=== PATIENT | female | born 1985 | race African-American/Black ===

== ENCOUNTER 2025-09-04 23:20 | Emergency (ER) | payer SELFPAY ==
[~2025-09-04] VITALS: Ht 172.7 cm; Wt 85.9 kg
[2025-09-04 23:22] VITALS: TEMP 98.2
[2025-09-04 23:48] VITALS: BP 112/75; PULSE 82; RESP 18; O2SAT 99
[2025-09-05 00:33] LABS: PLATELET COUNT (AUTO) 220 K/uL (150-450); RED BLOOD CELL COUNT(AUTO) 3.97 MIL/uL (4.00-5.20); RED CELL DISTRIBUTION WIDTH 13.9 % (11.5-14.5); WHITE BLOOD COUNT (AUTO) 5.7 K/uL (4.5-11.0)
[2025-09-05] MEDS: KETOROLAC TROMETHAMINE 30 MG/ML VIAL IM ONE (00:36)
[2025-09-05 00:44] LABS: CALCIUM, TOTAL 8.5 mg/dL (8.8-10.5); CREATININE 0.81 mg/dL (0.60-1.30); GLOMERULAR FILTR. RATE CALC > 60 mL/min (>60); GLUCOSE,RANDOM 103 mg/dL (70-110); SODIUM SERUM 140 mmol/L (136-145); UREA NITROGEN, BLOOD 16 mg/dL (7-18)
== END 2025-09-05 05:00 | disposition home or self-care (01) ==
LOC: EDBD 23:32 → EMS 23:32
DX: F41.9 Anxiety disorder, unspecified (principal); R51.9 Headache, unspecified; R55 Syncope and collapse; Z63.8 Other specified problems related to primary support group
CPT/HCPCS: 99284; 80048; 84703; 85025; 36415; 93005; 96372; J1885